=== PATIENT | female | born 1955 | race Caucasian/White ===

== ENCOUNTER 2019-11-17 17:01 | Emergency (ER) | payer OTHER ==
--- NOTE | 2019-11-17 17:14 | PDOC ---
Rapid Medical Evaluation Chief Complaint: Injury Time Seen by Provider: 11/17/19 17:13 Medical Evaluation: Allergies Allergy/AdvReac Type Severity Reaction Status Date / Time No Known Allergies Allergy Verified 07/09/15 07:56 11/17/19 17:13 I have performed a brief in-person evaluation of this patient. The patient presents with a chief complaint of: R ankle pain s/p twisting it 230 pm Pertinent physical exam findings: swelling and tenderness to R lateral malleolus I have ordered the following:xr The patient will proceed to the ED for further evaluation. Discharge Disposition - Diagnosis Ankle pain, right - Discharge Dispostion Condition at time of disposition: Stable - Referrals - Patient Instructions - Post Discharge Activity
[2019-11-17 17:22] VITALS: BP 166/91; PULSE 80; TEMP 98.4; BMI 28.0
--- NOTE | 2019-11-17 17:36 | PDOC ---
History of Present Illness - General Chief Complaint: Injury Stated Complaint: RT ANKLE PAIN Time Seen by Provider: 11/17/19 17:13 History Source: Patient Exam Limitations: No Limitations - History of Present Illness Initial Comments: 11/17/19 17:19 Was stepping out of cab and twisted right ankle. Occurred: reports: yesterday Severity: reports: mild, moderate Pain Location: reports: lower extremity (right ankle ) Method of Injury: Yes: fall Modifying Factors: improves with: cold therapy Associated Symptoms (Fall): denies symptoms Past History - Travel Traveled outside of the country in the last 30 days: No Close contact w/someone who was outside of country & ill: No - Past Medical History Allergies/Adverse Reactions: Allergies Allergy/AdvReac Type Severity Reaction Status Date / Time No Known Allergies Allergy Verified 07/09/15 07:56 Home Medications: Ambulatory Orders Cetirizine HCl [Zyrtec] 10 mg PO DAILY 05/18/12 Omeprazole [Prilosec (RX)] 40 mg PO DAILY 05/20/12 Azelastine HCl [Astelin] 137 mcg NS DAILY 10/04/15 Timolol Maleate [Timoptic] 5 ml OP DAILY 10/04/15 Timolol [Betimol] 5 ml OP DAILY 10/04/15 Naproxen [Naprosyn -] 500 mg PO BID #30 tablet 11/17/19 Anemia: No Asthma: No Cancer: No Cardiac Disorders: No CVA: No COPD: No CHF: No Dementia: Yes Diabetes: No GI Disorders: Yes (ACID REFLUX;GASTRITIS;IBS;H.PYLORI; POLYPS) Disorders: No HTN: No Hypercholesterolemia: No Liver Disease: Yes (FATTY LIVER) Seizures: No Thyroid Disease: No - Surgical History Abdominal Surgery: No Appendectomy: No Cardiac Surgery: No Cholecystectomy: No Lung Surgery: No Neurologic Surgery: No Orthopedic Surgery: No - Immunization History Immunization Up to Date: No - Psycho Social/Smoking Cessation Hx Smoking History: Never smoked Have you smoked in the past 12 months: No Information on smoking cessation initiated: No Hx Alcohol Use: No Drug/Substance Use Hx: No Substance Use Type: None Hx Substance Use Treatment: No Review of Systems - Review of Systems Able to Perform ROS?: Yes Is the patient limited Thai proficient: Yes Constitutional: Yes: Symptoms Reported, See HPI. No: Malaise HEENTM: No: Symptoms Reported Respiratory: No: Symptoms reported Musculoskeletal: Yes: Symptoms Reported, See HPI, Joint Pain, Joint Swelling All Other Systems: Reviewed and Negative *Physical Exam - Vital Signs Last Vital Signs Temp Pulse Resp BP Pulse Ox 98.4 F 80 18 166/91 7 L 11/17/19 17:14 11/17/19 17:14 11/17/19 17:14 11/17/19 17:14 11/17/19 17:14 - Physical Exam General Appearance: Yes: Nourished, Appropriately Dressed HEENT: positive: SANDY, Normal ENT Inspection, TMs Normal, Pharynx Normal Neck: positive: Supple. negative: Lymphadenopathy (R) Respiratory/Chest: positive: Lungs Clear Gastrointestinal/Abdominal: positive: Soft Musculoskeletal: positive: Normal Inspection Extremity: positive: Normal Capillary Refill, Tender (Point tenderness to lateral malleolus with tenderness and bruising. Able to flex and extend but is painful for that movement. Ankle joint is stable. Neurovascular intact to toes. Negative squeeze test). 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, Fully Oriented, Alert, Normal Mood/Affect, Normal Response, Motor Strength 5/5 Procedures - Splinting Splint Location: Right: Ankle Pre-Proc Neuro Vasc Exam: normal Post-Proc Neuro Vasc Exam: normal Anuj Bandage: 4" Sling: Yes Discharge - Discharge Information Problems reviewed: Yes Clinical Impression/Diagnosis: Closed right fibular fracture Qualifiers: Encounter type: initial encounter Fibula location: distal Fracture morphology: other fracture Qualified Code(s): S82.831A - Other fracture of upper and lower end of right fibula, initial encounter for closed fracture Condition: Stable Disposition: HOME - Admission No - Follow up/Referral Referrals: Shadi Carrillo MD [Staff Physician] - - Patient Discharge Instructions Patient Printed Discharge Instructions: DI for Ankle Sprain Additional Instructions: Rest, avoid strenuous activity or exercise until symptoms resolve Elevate, ice, may use compression with Anuj wraps or splinting as directed May use ibuprofen or Tylenol for swelling or pain relief Follow-up with PCP or orthopedist for reevaluation in 2 to 3 days Return to emergency department for worsened pain, swelling, fevers, or other complications - Post Discharge Activity Work/Back to School Note: Back to Work
== END 2019-11-17 17:59 | disposition home or self-care (01) ==
LOC: JERFT 17:01
PROC: 2W3QXYZ Immobilization of Right Lower Leg using Other Device (ICD-10-PCS; principal; 2019-11-17)
DX: S82.831A Other fracture of upper and lower end of right fibula, initial encounter for closed fracture (principal); V48.4XXA Person boarding or alighting a car injured in noncollision transport accident, initial encounter; Y92.414 Local residential or business street as the place of occurrence of the external cause; Y93.89 Activity, other specified; Y99.8 Other external cause status
CPT/HCPCS: 29540; 73610-TC-RT-FY; 73630-TC-RT-FY; 99283-25